=== PATIENT | female | born 1935 | race Caucasian/White ===

== ENCOUNTER → 2017-12-05 | Outpatient (CLI) | payer MEDICARE ==
[2017-12-05 12:19] LABS: AUTOMATED NEUTROPHIL # 4.7 TH/MM3 (1.8-7.7); BASOPHIL # 0.1 TH/MM3 (0-0.2); BASOPHIL % 0.9 % (0.0-2.0); EOSINOPHIL # 0.1 TH/MM3 (0-0.4); HEMATOCRIT 37.7 % (35.0-46.0); HEMOGLOBIN 12.5 GM/DL (11.6-15.3); LYMPH % 17.3 % (9.0-44.0); LYMPHOCYTE # 1.1 TH/MM3 (1.0-4.8); MEAN CELL VOLUME 93.1 FL (80.0-100.0); MEAN CORPUSCULAR HEMOGLOBIN 30.9 PG (27.0-34.0); MEAN CORPUSCULAR HGB CONC 33.2 % (32.0-36.0); MEAN PLATELET VOLUME 8.6 FL (7.0-11.0); MONO % 9.4 % (0.0-8.0); MONOCYTE # 0.6 TH/MM3 (0-0.9); NEUT % 71.4 % (16.0-70.0); PLATELET COUNT 234 TH/MM3 (150-450); RED BLOOD COUNT 4.05 MIL/MM3 (4.00-5.30); RED CELL DISTRIBUTION WIDTH 13.8 % (11.6-17.2); WHITE BLOOD COUNT 6.5 TH/MM3 (4.0-11.0)
[2017-12-05 12:32] LABS: PROTHROMBIN TIME - PATIENT 9.9 SEC (9.8-11.6)
[2017-12-05 12:43] LABS: ALBUMIN 3.7 GM/DL (3.4-5.0); ALT (GPT) 18 U/L (10-53); BLOOD UREA NITROGEN 17 MG/DL (7-18); CALCIUM 8.9 MG/DL (8.5-10.1); CHLORIDE 107 MEQ/L (98-107); CREATININE 0.79 MG/DL (0.50-1.00); GLOMERULAR FILTRATION RATE 69 ML/MIN (>89); GLUCOSE,FASTING 92 MG/DL (74-99); SODIUM (NA) 143 MEQ/L (136-145)
[2017-12-05 12:50] LABS: ALKALINE PHOSPHATASE 85 U/L (45-117); AST (GOT) 15 U/L (15-37); TOTAL BILIRUBIN ADULT 0.4 MG/DL (0.2-1.0); TOTAL PROTEIN 7.3 GM/DL (6.4-8.2)
--- NOTE | 2017-12-05 15:15 | RADRPT ---
EXAM DATE/TIME: 12/05/2017 12:27 [facility] COMPARISON: No previous studies available for comparison. INDICATIONS : Evaluate for pneumonia, pneumothorax or communicable disease. Pre op D&C. MEDICAL HISTORY : Uterine cancer SURGICAL HISTORY : None. ENCOUNTER: Initial ACUITY: 1 day PAIN SCORE: 0/10 LOCATION: Bilateral chest FINDINGS: PA and lateral views of the chest demonstrate a normal-sized cardiac silhouette. There is no effusion , consolidation, or pneumothorax. The bones and soft tissues demonstrate no acute abnormality. There are degenerative changes of the thoracic spine. Cholecystectomy clips are present. CONCLUSION: No acute cardiopulmonary abnormality is identified. Johnathan Apodaca MD on December 05, 2017 at 15:12 Board Certified Radiologist. This report was verified electronically.
--- NOTE | 2017-12-06 19:31 | EKG ---
Date Performed: 12/05/2017 Time Performed: 12:04:03 PTAGE: 82 years EKG: Sinus rhythm NONSPECIFIC T-WAVE ABNORMALITY BORDERLINE ECG NO PREVIOUS TRACING DOCTOR: Alvino Degroot Interpretating Date/Time 12/06/2017 19:29:15
== END ==
LOC: CPRE 11:19
PROVIDERS: ATTEND Obstetrics & Gynecology Gynecologic Oncology
DX: Z01.810 Encounter for preprocedural cardiovascular examination (principal); Z01.811 Encounter for preprocedural respiratory examination; Z01.812 Encounter for preprocedural laboratory examination; C54.1 Malignant neoplasm of endometrium; R94.31 Abnormal electrocardiogram [ECG] [EKG]
CPT/HCPCS: 36415; 71046; 80053; 85025; 85610; 85730; 93005

== ENCOUNTER → 2017-12-10 | Day surgery (SDC) | payer MEDICARE ==
[~2017-12-10] VITALS: Ht 167.6 cm; Wt 67.2 kg
[~2017-12-10] MED LIST: CHLORHEXIDINE GLUCONATE 2 % 1 PACK (2 CLOTHS) TOPICAL PRN; DEXAMETHASONE SOD PHOS 4 MG/ML VIAL IV ONE; DO NOT ADM ANY ANTICOAGULANT DRUGS PRN; FERRIC SUBSULFATE 8 ML TOP SOLN TOPICAL ONE; LACTATED RINGER'S 1000 ML IV PRN; LIDOCAINE HCL 1% PF 5 ML SYRINGE OTHER ONE; METOPROLOL TARTRATE 25 MG TAB PO PRN; ONDANSETRON HCL 4 MG/2 ML VIAL IV ONE; POVIDONE IODINE 5% (ANTISEPSIS KIT) 4 APPLICATIONS EACH NARE PRN; PROPOFOL 200 MG/20 ML AMP IV ONE; SODIUM CHLORID 0.9% 500 ML IV PRN
--- NOTE | 2017-12-10 13:22 | MP ---
cc: Angela Carvalho MD,Mariusz Kearns,radhika LYNCH DATE OF OPERATION: 12/10/2017 PREOPERATIVE DIAGNOSIS: 1. Postmenopausal bleeding. 2. 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 PROCEDURE: 1. Examination under anesthesia, biopsies of the cervix and upper vagina. 2. Cystoscopy. SURGEON: Angela Carvalho MD SCIENTIFIC GLASS BLOWER: [place] student assistant ANESTHESIA: Laryngeal mask. ESTIMATED BLOOD LOSS: 75 mL. HISTORY: An 82-year-old female with postmenopausal bleeding over many months duration. Outside biopsy showed adenocarcinoma. There was tissue taken from the cervix and a description of an abnormal cervix on clinical exam with extension to the upper vagina or tumor. Biopsy was read out as poorly differentiated carcinoma with apparent squamous and transitional cell differentiation. Another biopsy from the cervix showed adenocarcinoma, moderately differentiated. PET/CT scan shows a large PET avid signal in both the uterus and the cervix with the appearance of possibly extending to the upper vagina. She was counseled regarding these findings and need to get additional information to clarify the origin and extent of the problem, so that treatment recommendations can be made. FINDINGS: On exam under anesthesia, there is no appreciably enlarged inguinal lymph nodes. External genitalia without mass or lesion. On exam palpably, tumor can be felt extending along the anterior vagina in the vesicovaginal septum and subvaginal tissue that extends down into the lower third of the vagina. Similarly along the lateral ribera of the vagina, there is tumor infiltrating into the vaginal mucosa and subvaginal mucosa that occupies the upper half of the vagina. Similarly, there was extension to the upper half of the vagina posteriorly in the rectovaginal septum and subvaginal tissue. The tumor itself essentially replaces the cervix. There is a wide extension into the parametria bilaterally and the width of the tumor seems to extend to the pelvic sidewalls bilaterally. Whereas there is some minimal mobility between the cervix and the lateral pelvic sidewall, there is no obvious tumor free space and even if this were to be an endometrial tumor that had extended through the cervix, it has spread to the parametria into the vagina clinically acting more like the spread pattern of a cervical cancer. On cystoscopy, the bladder mucosa appears essentially normal. There are some inflammatory changes with some sediment deposit in the trigone. The ureteral ostia are well visualized bilaterally. There is good peristalsis of the ureters, although there was limited efflux of urine visualized during the period of examination. It is noted, however, clinically her creatinine is 0.7. Imaging did not show any hydronephrosis and clinically she is making urine and I suspect she was just somewhat dehydrated at time of exam. Proctosigmoidoscopy was attempted, but the prep was inadequate. There was no palpable tumor on deep rectovaginal exam. No obvious tumor arising in or extending into the anus and rectum, but she was essentially unprepped and visibility was not possible for proctosigmoidoscopy. Overall, these findings are consistent with a tumor a probable cervical origin, whereas the possibility of a uterine cancer, extending down through the cervix and vagina and parametria is possible. Either way, it is not amenable to surgical treatment due to the infiltrative and extensive nature of tumor. Additional biopsies were obtained and will be sent for permanent histopathologic analysis to help clarify the diagnosis. PROCEDURE NOTE: She was taken to the operating room and placed in dorsal lithotomy position after laryngeal mask anesthesia was administered. Time-out was undertaken. She was identified by site recognition and hospital ID bracelet and the proposed procedure was reviewed and confirmed. She was placed in lithotomy position. Pelvic exam was performed with findings as described above. She was prepped and draped in sterile fashion. In in-and-out catheterization of the bladder was performed. Biopsies were taken from the distal ventral vagina, from the right proximal vagina, and from the central cervical tumor and a pack was placed in the vagina to assist in hemostasis. Cystoscopy was performed using a 30-degree scope with findings as described above. The bladder was drained. Proctosigmoidoscopy started, attempted, but not done due to being non-prepped. A change of sterile gloves was undertaken. The pack was removed from the vagina. The biopsy sites were rendered hemostatic with topical Monsel's solution and then Surgicel SNoW was packed across the cervical tumor and in the upper vagina. A few moments later, she was reinspected. Sites were noted to be hemostatic. No active bleeding from this otherwise friable and hemorrhagic tumor. There were no remaining foreign objects in the vagina except for the intentionally left hemostatic agents. Preliminary and final counts were correct. She was returned to dorsal supine position and was pending reversal of anesthesia when I left the operating room to precede her to the postanesthesia care unit. MD BON Crane , 12:55 PM , 01:21 PM
[2017-12-10 14:10] VITALS: BP 157/74; PULSE 58; RESP 20; TEMP 97.7; O2SAT 95
== END | disposition home or self-care (01) ==
LOC: HSDC 09:03
PROVIDERS: ATTEND Obstetrics & Gynecology Gynecologic Oncology
DX: N95.0 Postmenopausal bleeding (principal); C53.8 Malignant neoplasm of overlapping sites of cervix uteri
CPT/HCPCS: 57100; 57500; 86850; 86900; 86901; 88305; 88341; 88342; J1100; J2405; J3010; J7120

== ENCOUNTER 2017-12-25 06:18 | Day surgery (SDC) | payer MEDICARE ==
[~2017-12-25] VITALS: Ht 167.6 cm; Wt 67.0 kg
[2017-12-25 06:52] VITALS: BP 150/93; PULSE 79; RESP 18; TEMP 98; O2SAT 96
[2017-12-25] MEDS ORDERED: POVIDONE IODINE 5% (ANTISEPSIS KIT) 4 APPLICATIONS EACH NARE SCH (07:00)
[2017-12-25] MEDS ORDERED: CHLORHEXIDINE GLUCONATE 2 % 1 PACK (2 CLOTHS) TOPICAL SCH (07:00)
[2017-12-25] MEDS ORDERED: SODIUM CHLORIDE 0.9% 1000 ML IV SCH ×2 (07:00→11:15)
[2017-12-25] MEDS ORDERED: MIDAZOLAM HCL 5 MG/5 ML VIAL ONE (07:44)
[2017-12-25] MEDS ORDERED: fentaNYL CITRATE 250 MCG/5 ML AMP ONE (07:45)
[2017-12-25] MEDS ORDERED: LIDOCAINE 1%/EPINEPHrine 1:100,000 SOLN 30 ML VIAL ONE (07:52)
--- NOTE | 2017-12-25 08:56 | PD.RAD ---
Post Procedure Progress Note Pre Procedure Diagnosis: (1) Endometrial cancer Post Procedure Diagnosis: (1) Endometrial cancer Procedure Date: December 25, 2017 Supervising Radiologist: Garrett Foote Estimated blood loss: 3cc Anesthesia: Local, Conscious Sedation Plan of Activity Patient to Unit: ROPU Patient Condition: Good Additional Comments: Port placed via the right IJ Port in good position OK for use See PACS Report for procedural detail/treatment Garrett Foote MD December 25, 2017 08:56
[2017-12-25 09:00] VITALS: BP 133/75; PULSE 77; RESP 16; TEMP 98; O2SAT 94
[2017-12-25] MEDS ORDERED: SODIUM CHLORIDE 0.9% FLUSH 10 ML FLUSH IVF PRN (09:00)
[2017-12-25 09:15] VITALS: BP 123/69; PULSE 69; RESP 20; O2SAT 94
[2017-12-25 09:45] VITALS: BP 123/73; PULSE 70; RESP 20; O2SAT 96
[2017-12-25 10:15] VITALS: BP 151/91; PULSE 68; RESP 20; O2SAT 95
[2017-12-25 10:45] VITALS: BP 134/65; PULSE 68; RESP 20; O2SAT 96
[2017-12-25] MEDS ORDERED: VANCOMYCIN 1000 MG/NS 250 ML - implanted port/tunneled catheter IV SCH ×2 (11:15)
[2017-12-25] MEDS ORDERED: ceFAZolin 2 GM PREMIX 50 ML - implanted port/tunneled catheter insertion IV SCH (11:15)
--- NOTE | 2017-12-26 09:37 | RADRPT ---
EXAM DATE/TIME: 12/25/2017 08:06 [facility] COMPARISON: No previous studies available for comparison. INDICATIONS : Patient presents with endometrial cancer in need of port placement for treatment. MEDICAL HISTORY : Endometrial cancer Cataracts SURGICAL HISTORY : Gallbladder surgery Tonsillectomy Cataract surgery ENCOUNTER: Initial ACUITY: 2 months PAIN SCORE: 0/10 LOCATION: N/A FLUORO TIME: 0.6 minutes IMAGE SERIES: 1 SEDATION TIME: 45 minutes ACCESS: Right internal jugular vein SEDATION: 1.) 3.5 mg midazolam (Versed) IV 2.) 100 mcg fentanyl (Sublimaze) IV Prophylactic antibiotics were administered with appropriate pre-procedure timing. Vancomycin within 2 hours of procedure, Ancef (or alternative) within 1 hour of procedure. DEVICE: 1. 8 Dominican single lumen Xcela Plus Port PROCEDURE : 1. Continuous pulse oximetry and EKG monitoring. 2. Intravenous conscious sedation. 3. Ultrasound guidance for venous access. 4. Fluoroscopic guided implantable central venous port placement. The patient was placed supine. The neck was prepped in sterile fashion. Full sterile technique was u sed, including cap, mask, sterile gloves and gown, and a large sterile sheet. Hand hygiene and 2% ch lorhexidine Betadine was utilized per protocol for cutaneous antisepsis with appropriate dry time for site. Sterile gel and sterile probe cover were utilized for ultrasound guidance. The skin and sub cutaneous tissues were infiltrated with local anesthetic solution. Under direct ultrasound guidance, central venous access was accomplished in the targeted vessel. The ultrasound images depicting access guidance were stored and saved to PACS for permanent record. A s ubcutaneous pocket was created using blunt dissection. The port was introduced to the pocket. The c atheter tubing was fed through a subcutaneous tunnel to the venotomy site. The catheter tubing was c ut to a suitable length and then was introduced through a valved Peel-Away sheath and positioned with catheter tubing tip at the cavo-atrial junction level. The pocket incision was closed with subcutic ular Vicryl suture. Steri-Strips were applied. The port was flushed and locked with heparin solutio n per protocol. Sterile dressing was applied to the site. The patient tolerated the procedure well. Conscious sedation was performed with the prescribed dosages and duration as above in the presence of an independent trained radiology nurse to assist in the monitoring of the patient. EKG and oximetry remained stable throughout the procedure. The patient tolerated the procedure well and there were no complications. The patient was sent to post anesthesia recovery in stable condition. CONCLUSION: Uncomplicated ultrasound and fluoroscopic guided implanted central venous port catheter placement as described in detail above. An 8 Dominican Power port was placed. Garrett Foote MD on December 26, 2017 at 9:35 Board Certified Radiologist. This report was verified electronically.
== END 2017-12-25 11:00 | disposition home or self-care (01) ==
LOC: HROP 06:18 → HRIP 06:18 → HROP 11:00
PROVIDERS: ATTEND Obstetrics & Gynecology Gynecologic Oncology
DX: Z45.2 Encounter for adjustment and management of vascular access device (principal); C54.1 Malignant neoplasm of endometrium
CPT/HCPCS: 36561; 76937; 77001; 99152; 99153; C1788; J0690; J1642; J2250; J3010; J3370; J7050

== ENCOUNTER 2018-03-06 12:27 | Observation (INO) ==
--- NOTE | 2018-03-06 13:39 | XR ---
EXAM DATE: 03/06/2018 1:33 PM EDT AGE/SEX: 82 years / Female INDICATIONS: Short of breath. CLINICAL DATA: This is the patient's initial encounter. Patient reports that signs and symptoms have been present for 1 day and indicates a pain score of 0/10. MEDICAL/SURGICAL HISTORY: Carcinoma, cervical. Carcinoma, uterine. None. COMPARISON: No prior exams available for comparison. FINDINGS: A single AP view of the chest demonstrates the lungs to be symmetrically aerated without evidence of mass, infiltrate or effusion. The cardiomediastinal contours are unremarkable. Osseous structures a re intact. Heigiw-v-Hrsb is in place via right internal jugular approach with its tip in the superior vena cava. The aortic knob is prominent with tortuosity of the descending thoracic aorta. CONCLUSION: No acute cardiopulmonary disease. Electronically signed by: Irving Garcia MD 03/06/2018 1:38 PM EDT
--- NOTE | 2018-03-06 14:08 | ED ---
HPI General Chief Complaint: Neuro Symptoms/Deficit Stated Complaint: Trouble speaking/dizzy Time Seen by Provider: 03/06/18 13:03 Source: patient and family Mode of arrival: ambulatory Limitations: no limitations History of Present Illness HPI Narrative: 82-year-old female that presents to the ED for evaluation of possible slurred speech. Per patient she is had slurred speech in the past. Per patient she had an episode of TIA about 2 months ago. She was released and has been following her doctor. She does have a significant history of uterine cancer gets radiation and chemo (no chemo in 2 months). Per patient she is been unsuccessful at getting chemo secondary to severe side effects from the chemotherapy. Apparently last time she had chemo she was put in the hospital for quite some time. Per patient she has been trying to get the radiation and other surgical treatments for her current cancer. Apparently they found out that her platelets have been low and on Saturday she was supposed to have seed implantation surgery but apparently it was canceled due to low platelets. They instead started her on hydration IV as well as platelets and was given a transfusion yesterday. Per patient she had slurred speech yesterday when she was given this platelets and hydration and her symptoms improved after this was given. Per patient she has not had any slurred speech since although she states that it comes and goes but today she was going for her second appointment to get her hydration and possible platelets at the oncology center and because she mentioned that she had some slurred speech there were brought here for evaluation. When asked if she mentioned this to them yesterday she does state that she did and she is questioning why they sent her here today but none yesterday. She herself does not want to be here. Per patient currently she has no neurological deficits. She is very concerned about getting her hydration today as well as possible platelet transfusion if she needs one because she does not want to miss her possible surgical treatment tomorrow. She currently has no pain. No blurry vision. No double vision. Her speech is normal at this time, per patient it seems to come and go. She takes no medications other than a baby aspirin. Related Data Home Medications Medication Instructions Recorded Confirmed aspirin [Aspirin Low Dose] 81 mg PO DAILY 03/03/18 03/06/18 magnesium oxide 400 mg PO DAILY 03/03/18 03/06/18 potassium chloride 10 meq PO DAILY 03/03/18 03/06/18 Allergies Allergy/AdvReac Type Severity Reaction Status Date / Time No Known Allergies Allergy Unverified 12/10/17 09:47 Review of Systems ROS Unobtainable All other systems reviewed negative except as stated in [facility] History History Provided By: Patient and Family Member Medical History Medical History Cancer (Acute) Port catheter in place (Acute) Surgical History Surgical History Hx of cholecystectomy (Acute) Social History Social History Substance History: No History of Abuse Second Hand Smoke Exposure: No Smoking Status: Never smoker How Often Do You Have a Drink Containing Alcohol: Monthly or less Recent Travel in [facility] within the Last 8 Weeks: No Recent Out of Country Travel within the Last 8 Weeks: No Exam Narrative Exam Narrative: GENERAL: Well-appearing SKIN: Focused skin assessment warm/dry. HEAD: Atraumatic. Normocephalic. EYES: Pupils equal and round. No scleral icterus. No injection or drainage. ENT: No nasal bleeding or discharge. Mucous membranes pink and moist. Tongue is midline. No uvula deviation. NECK: Trachea midline. No JVD. CARDIOVASCULAR: Regular rate and rhythm. No murmur appreciated. RESPIRATORY: No accessory muscle use. Clear to auscultation. Breath sounds equal bilaterally. GASTROINTESTINAL: Abdomen soft, non-tender, nondistended. Hepatic and splenic margins not palpable. MUSCULOSKELETAL: No obvious deformities. No clubbing. No cyanosis. No edema. Full range of motion of the upper and lower extremities bilaterally. 2+ pulses bilaterally. NEUROLOGICAL: Awake and alert. No obvious cranial nerve deficits. Motor grossly within normal limits. Normal speech. PSYCHIATRIC: Appropriate mood and affect; insight and judgment normal. Course Initial Documented Vital Signs Temperature 97.6 F 03/06/18 12:34 Pulse Rate 149 H 03/06/18 12:34 Respiratory Rate 15 03/06/18 12:34 Blood Pressure 129/84 03/06/18 12:34 Pulse Oximetry 99 03/06/18 12:34 Last Documented Vital Signs Temperature 97.6 F 03/06/18 12:34 Pulse Rate 81 03/06/18 14:00 Respiratory Rate 17 03/06/18 14:00 Blood Pressure 150/68 H 03/06/18 14:00 Pulse Oximetry 98 03/06/18 14:41 Medical Decision Making MAITE Attestation MAITE supervised visit: Yes Attestation: I, Dr. galaviz, have reviewed the advance practice practitioner's documentation and am in agreement, met with the patient face to face, made the diagnosis, and the medical decision making was done by me. *My assessment and Findings: 82-year-old female presents with episode of slurred speech and history of TIAs and uterine and cervical cancer. Workup shows UTI. Patient will be admitted for further care and given antibiotics. Aspirin held given history of thrombocytopenia MDM Narrative Medical decision making narrative: 82-year-old female that presents to the ED for evaluation of possible slurred speech. Patient was properly examined and was found to have signs and symptoms of unclear etiology at this time. Patient does have significant risk factors for TIA. Labs and imaging were ordered. I did review the patient's medical records from her blood drawn yesterday her platelets were 129. Low but not as significant as before. At this time patient was given IV fluids. My attending doctor who agrees with plan. Labs and imaging showed possible UTI, otherwise unremarcable. Asymptomatic the whole time here in the ED. My attending Dr Galaviz evaluated the patient and recommends zosyn and hydration and admit for TIA. This was discussed with the patient, she wants Dr Henriquez notified and see if they can still do surgery. I spoke with Kimi MAGDALENO for Dr Henriquez who states that if patient admitted she might have to cancel surgery but depends if patient can be cleared. She gave me Dr henriquez personal number and wants admitting doctor to call him once patient admitted. Case discussed with Dr Schumacher for [facility] who agrees to admission. Patient herself agreed to admission. Differential Diagnosis Differential Diagnosis: TIA versus CVA versus dehydration versus thrombocytopenia Medical Records Medical records reviewed: Yes I reviewed the patient's medical records. Lab Data Lab results reviewed: Yes I reviewed the patient's lab results. Lab results narrative: UA shows leukerase esteras and some bacteria with some WBCs troponin and CKMB negative Result diagrams: 03/06/18 13:15 03/06/18 13:15 Lab Results 03/06/18 03/06/18 03/06/18 Range/Units 13:15 13:15 13:15 WBC 9.0 (4.0-11.0) th/mm3 RBC 2.76 L (4.00-5.30) mil/mm3 Hgb 8.7 L (11.6-15.3) gm/dL Hct 26.0 L (35.0-46.0) % MCV 94.4 (80.0-100.0) fL MCH 31.7 (27.0-34.0) pg MCHC 33.6 (32.0-36.0) % RDW 17.8 H (11.6-17.2) % Plt Count 61 L (150-450) th/mm3 MPV 9.4 (7.0-11.0) fL Prelim Diff (Auto) Slide review pending Neut % (Auto) 85.3 H (16.0-70.0) % Lymph % (Auto) 4.7 L (9.0-44.0) % Ross % (Auto) 9.3 H (0.0-8.0) % Eos % (Auto) 0.4 (0.0-4.0) % Baso % (Auto) 0.3 (0.0-2.0) % Neut # (Auto) 7.7 (1.8-7.7) th/mm3 Lymph # (Auto) 0.4 L (1.0-4.8) th/mm3 Ross # (Auto) 0.8 (0.0-0.9) th/mm3 Eos # (Auto) 0.0 (0.0-0.4) th/mm3 Baso # (Auto) 0.0 (0.0-0.2) th/mm3 WBC Differential Manual diff final Seg Neuts % (Manual) 81 H (16-70) % Band Neuts % (Manual) 6 (0-6) % Lymphocytes % (Manual) 4 L (9-44) % Monocytes % (Manual) 9 H (0-8) % Abs Neuts (Manual) 7.8 H (1.8-7.7) th/mm3 Differential Comment . Platelet Estimate Low L (Normal) Platelet Morphology Normal (Normal) PT 10.1 (9.8-11.6) sec INR 1.0 Ratio APTT 21.6 L (24.3-30.1) sec Sodium 136 (136-145) meq/L Potassium 3.7 (3.5-5.1) meq/L Chloride 101 (98-107) meq/L Carbon Dioxide 26.4 (21.0-32.0) meq/L Anion Gap 9 (5-15) meq/L BUN 12 (7-18) mg/dL Creatinine 0.85 (0.50-1.00) mg/dL Estimated GFR 64 L (>89) mL/min Random Glucose 100 (74-106) mg/dL Lactic Acid (0.4-2.0) mmol/L Calcium 8.5 (8.5-10.1) mg/dL Total Bilirubin 0.4 (0.2-1.0) mg/dL AST 24 (15-37) U/L ALT 28 (10-53) U/L Alkaline Phosphatase 81 (45-117) U/L Total Creatine Kinase 72 (26-192) U/L Troponin I Less than 0.02 L (0.02-0.05) ng/mL Total Protein 7.0 (6.4-8.2) g/dL Albumin 3.0 L (3.4-5.0) g/dL Urine Color (Yellw/Straw) Urine Clarity (Clear) Urine pH (5.0-8.5) Ur Specific [place] (1.002-1.035) Urine Protein (Neg-Trace) mg/dL Urine Glucose (UA) (Negative) mg/dL Urine Ketones (Negative) mg/dL Urine Occult Blood (Negative) Urine Nitrate (Negative) Urine Bilirubin (Negative) Urine Urobilinogen (Less than 2) mg/dL Ur Leukocyte Esterase (Negative) Urine RBC (0-3) /hpf Urine WBC (0-5) /hpf Urine WBC Clumps (None) Ur Squamous Epith Cells (0-5) /hpf Urine Bacteria (None) /hpf Micro UA Comment Urine Culture Comments 03/06/18 03/06/18 Range/Units 14:00 15:35 WBC (4.0-11.0) th/mm3 RBC (4.00-5.30) mil/mm3 Hgb (11.6-15.3) gm/dL Hct (35.0-46.0) % MCV (80.0-100.0) fL MCH (27.0-34.0) pg MCHC (32.0-36.0) % RDW (11.6-17.2) % Plt Count (150-450) th/mm3 MPV (7.0-11.0) fL Prelim Diff (Auto) Neut % (Auto) (16.0-70.0) % Lymph % (Auto) (9.0-44.0) % Ross % (Auto) (0.0-8.0) % Eos % (Auto) (0.0-4.0) % Baso % (Auto) (0.0-2.0) % Neut # (Auto) (1.8-7.7) th/mm3 Lymph # (Auto) (1.0-4.8) th/mm3 Ross # (Auto) (0.0-0.9) th/mm3 Eos # (Auto) (0.0-0.4) th/mm3 Baso # (Auto) (0.0-0.2) th/mm3 WBC Differential Seg Neuts % (Manual) (16-70) % Band Neuts % (Manual) (0-6) % Lymphocytes % (Manual) (9-44) % Monocytes % (Manual) (0-8) % Abs Neuts (Manual) (1.8-7.7) th/mm3 Differential Comment Platelet Estimate (Normal) Platelet Morphology (Normal) PT (9.8-11.6) sec INR Ratio APTT (24.3-30.1) sec Sodium (136-145) meq/L Potassium (3.5-5.1) meq/L Chloride (98-107) meq/L Carbon Dioxide (21.0-32.0) meq/L Anion Gap (5-15) meq/L BUN (7-18) mg/dL Creatinine (0.50-1.00) mg/dL Estimated GFR (>89) mL/min Random Glucose (74-106) mg/dL Lactic Acid 0.6 (0.4-2.0) mmol/L Calcium (8.5-10.1) mg/dL Total Bilirubin (0.2-1.0) mg/dL AST (15-37) U/L ALT (10-53) U/L Alkaline Phosphatase (45-117) U/L Total Creatine Kinase (26-192) U/L Troponin I (0.02-0.05) ng/mL Total Protein (6.4-8.2) g/dL Albumin (3.4-5.0) g/dL Urine Color Straw (Yellw/Straw) Urine Clarity Hazy H (Clear) Urine pH 8.0 (5.0-8.5) Ur Specific [place] 1.003 (1.002-1.035) Urine Protein Negative (Neg-Trace) mg/dL Urine Glucose (UA) Negative (Negative) mg/dL Urine Ketones Negative (Negative) mg/dL Urine Occult Blood Moderate H (Negative) Urine Nitrate Negative (Negative) Urine Bilirubin Negative (Negative) Urine Urobilinogen Less than 2 (Less than 2) mg/dL Ur Leukocyte Esterase Large H (Negative) Urine RBC 3 (0-3) /hpf Urine WBC 99 H (0-5) /hpf Urine WBC Clumps Rare H (None) Ur Squamous Epith Cells <1 (0-5) /hpf Urine Bacteria Few H (None) /hpf Micro UA Comment Culture indicated Urine Culture Comments Culture indicated Imaging Data Attestation: I personally reviewed and interpreted this imaging study as follows : Radiologist's impression: ITS Impressions Chest X-Ray 03/06/18 13:04 CONCLUSION: No acute cardiopulmonary disease. Head CT 03/06/18 13:04 CONCLUSION: 1. No acute abnormality. 2. Mild atrophy. ECG Data EKG Prior to Arrival: No Attestation: I personally reviewed and interpreted this ECG as follows: (EKG shows sinus rhythm with no sign of acute ischemia or arrhytmia read by me and attending.) Discharge Plan Discharge Disposition Patient Disposition: 30 Still Patient Discharge Details Diagnosis: Slurred speech, Acute UTI Physicians Team ED Provider: Blanka Galaviz ED Midlevel Provider: Wellington Duenas Primary Care Provider: Primary Care Molly Abdi Attending Provider: Navarro Anand Discharge Interventions Interventions: Vital Signs Last Done: 03/06/18 14:00 Status ED Status: Admitted Observation Patient
[2018-03-06 15:41] LABS: Baso % (Auto) 0.3 % (0.0-2.0); Eos % (Auto) 0.4 % (0.0-4.0); Hemoglobin 8.7 gm/dL (11.6-15.3); Lymph # (Auto) 0.4 th/mm3 (1.0-4.8); Lymph % (Auto) 4.7 % (9.0-44.0); Mean Corpuscular HGB Conc 33.6 % (32.0-36.0); Mean Corpuscular Hemoglobin 31.7 pg (27.0-34.0); Mean Corpuscular Volume 94.4 fL (80.0-100.0); Mean Platelet Volume 9.4 fL (7.0-11.0); Mono # (Auto) 0.8 th/mm3 (0.0-0.9); Mono % (Auto) 9.3 % (0.0-8.0); Neut # (Auto) 7.7 th/mm3 (1.8-7.7); Neut % (Auto) 85.3 % (16.0-70.0); Platelet Count 61 th/mm3 (150-450); Red Blood Count 2.76 mil/mm3 (4.00-5.30); Red Cell Distribution Width 17.8 % (11.6-17.2)
[2018-03-06 15:45] LABS: Activated Partial Thrombo Time 21.6 sec (24.3-30.1); Prothrombin Time 10.1 sec (9.8-11.6)
[2018-03-06 15:49] LABS: Bacteria,Urine Few /hpf; Bilirubin,Urine Negative (Negative); Clarity,Urine Hazy (Clear); Color,Urine Straw (Yellw/Straw); Glucose,Urine (UA) Negative (Negative); Leukocyte Esterase,Urine Large (Negative); Nitrite,Urine Negative (Negative); Specific Gravity,Urine 1.003 (1.002-1.035); Squamous Epithelial Cell,Urine <1 /hpf (0-5)
[2018-03-06 15:53] LABS: Alanine Aminotransferase 28 U/L (10-53); Anion Gap 9 meq/L (5-15); Aspartate Aminotransferase 24 U/L (15-37); Blood Urea Nitrogen 12 mg/dL (7-18); Calcium 8.5 mg/dL (8.5-10.1); Carbon Dioxide 26.4 meq/L (21.0-32.0); Chloride 101 meq/L (98-107); Glomerular Filtration Rate 64 mL/min (>89); Glucose,Random 100 mg/dL (74-106); Potassium 3.7 meq/L (3.5-5.1); Sodium 136 meq/L (136-145)
[2018-03-06 15:56] LABS: Alkaline Phosphatase 81 U/L (45-117)
[2018-03-06 16:05] LABS: Creatine Kinase 72 U/L (26-192)
[2018-03-06] MEDS ORDERED: Piperacil/Tazo 3.375 GM Premix 50 ML IV.SIG ONE (16:06)
[2018-03-06 16:49] LABS: Lymphocytes 4 % (9-44); Monocytes 9 % (0-8)
[2018-03-06 16:51] LABS: Platelet Morphology Normal (Normal)
--- NOTE | 2018-03-06 17:40 | CT ---
EXAM DATE: 03/06/2018 1:39 PM EDT AGE/SEX: 82 years / Female INDICATIONS: Altered mental status. Slurred speech and dizziness on and off since yesterday. CLINICAL DATA: This is the patient's initial encounter. Patient reports that signs and symptoms have been present for 1 day and indicates a pain score of 0/10. MEDICAL/SURGICAL HISTORY: Carcinoma, cervical. Carcinoma, uterine. None. RADIATION DOSE: 35.82 CTDI (mGy) COMPARISON: No prior exams available for comparison. TECHNIQUE: CT of the head without contrast. Using automated exposure control and adjustment of the mA and/or kV according to patient size, radiation dose was kept as low as reasonably achievable to ob tain optimal diagnostic quality images. DICOM format image data is available electronically for revi ew and comparison. FINDINGS: Cerebrum: The ventricles are normal for age. There is mild sulcal widening. No evidence of midline s hift, mass lesion, hemorrhage or acute infarction. No extraaxial fluid collections are seen. Posterior Fossa: The cerebellum and brainstem are intact. The 4th ventricle is midline. The cerebe llopontine angle is unremarkable. Extracranial: The visualized portion of the orbits is intact. Skull: The calvaria is intact. No evidence of skull fracture. CONCLUSION: 1. No acute abnormality. 2. Mild atrophy. Electronically signed by: Johnathan Chou MD 03/06/2018 5:39 PM EDT
--- NOTE | 2018-03-06 21:17 | P.HP ---
History of Present Illness Service: [facility] adult med Primary Care Physician: No Primary Care Physician Chief Complaint: slurred speech, difficulty expressing thoughts, dizziness History of Present Illness: The very pleasant 82-year-old female who has been undergoing radiation treatment for cervical and apparently uterine cancer who is over the last 2 months had several episodes of speech disturbance. Her first episode occurred in late December when she was driving her car and she noticed that she could not speak correctly and became somewhat dizzy. She also had some forgetfulness at that time and was hospitalized. She reports by the time she was hospitalized her speech had returned. This hospitalization occurred in [place] she had MRI MRA CT done which were all essentially unremarkable at that time. She also had an echocardiogram done during that hospitalization on January 22 which demonstrated mild to moderate regurgitation with an EF of 50-55%. There is no mention of any valve vegetations. Her PA peak pressure was 35 mmHg. She reports that she had a subsequent similar event after she was shopping and a local [employer] in early January. She was again hospitalized around January 27 and underwent a neurologic evaluation via telemedicine. Reports from that consultation revealed that she had 2 previous MRIs one was negative in 1 "positive for stroke" and a third MRI was planned. Final MRI report that I can view in her electronic health record was done January 29 and was negative for any acute findings. The events leading to today's ER visit and hospitalization started this morning when she presented to the oncology suite for preplanned hydration and pre-eval for a planned cervical seed implant under anesthesia tomorrow morning with Dr. Carvalho. desktop administrator and oncology noticed the patient was slurring her words and patient reported that she could not form the words she wanted to say. They encouraged her to come to the ER but she refused and went upstairs however she was still having some slurred speech and dizziness and was placed in a wheelchair and brought to the ER apparently by her daughter. Her speech was already clearing when she came to the ER and she is baseline. Her desire to go ahead with the planned anesthesia cervical seed implant tomorrow morning. It is noted that her radiation oncologist wanted her to have a [id number] neurology evaluation as an outpatient but she has not been able to schedule that until the of this month. She denies any chest pain or shortness of breath. Denies any vomiting. She has had some nausea and weakness particularly since starting the radiation therapy. She has been told to take an aspirin and tries to do that daily but her low platelets have made it somewhat problematic. She is actually received platelet transfusions recently in attempts to prepare her for her planned female exam under anesthesia tomorrow morning. I discussed the case with Dr. Carvalho and neither is us or comfortable with her proceeding with the procedure until actually evaluated by neurologist. Patient needs a disk sander and a prolonged event monitor which is been advised by cardiology that she declined to set up that appointment as an outpatient. My concern is that she is having intermittent TIAs which places her at significant risk for possible large stroke. I am unsure of the possible embolic source however. 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 - Diagnosis (1) TIA (transient ischemic attack) (2) Slurred speech (3) Acute UTI (4) Cervical cancer Inpatient Certification: I certify that the inpatient services were ordered in accordance with Medicare regulations governing the order. This includes certification that hospital inpatient services are reasonable and necessary and in the case of services not specified as inpatient-only under 42 CFR 419.22(n), that they are appropriately provided as inpatient services in accordance to with the 2-midnight benchmark under 43 CFR 412.3(e) Plans for Post Hospital Care: Home Review of Systems Constitutional: Reports daytime sleepiness, Reports fatigue, Reports weakness Cardiovascular: Denies chest pain, Denies chest pain at rest, Denies chest pain with activity, Denies excessive sweating, Denies fainting, Denies fast heart rate, Denies foot swelling, Denies generalized swelling, Denies irregular heart rhythm, Denies leg pain with activity, Denies leg sores, Denies leg swelling, Denies lightheadedness, Denies radiating jaw, neck or arm pain, Denies rapid, pounding, or irregular heartbeat, Denies shortness of breath, Denies shortness of breath with activity, Denies shortness of breath when lying down, Denies shortness of breath causing sudden awakening, Denies slow heart rate, Denies other Respiratory: Denies change in phlegm color, Denies chest congestion, Denies cough, Denies coughing up blood, Denies excessive phlegm production, Denies pain on inspiration, Denies pain with cough, Denies shortness of breath, Denies shortness of breath with activity, Denies snoring, Denies stridor, Denies wheezing, Denies other Gastrointestinal: Reports loose stools, Reports nausea, Denies abdominal pain, Denies belching, Denies black, tarry stools, Denies bloating, Denies bright, red blood in stools, Denies change in bowel habits, Denies constant urge to pass stool, Denies change in stools, Denies coffee ground vomit, Denies constipation, Denies cramping, Denies difficulty swallowing, Denies excessive passing of gas, Denies feeling full early, Denies heartburn, Denies incontinent of stools, Denies pain with swallowing, Denies vomiting, Denies vomiting blood, Denies other Musculoskeletal: Reports back pain Neurologic: Reports abnormal speech, Reports confusion, Reports dizziness Psychiatric: Reports anxiety PMFSH - History History Provided By: Patient, Family Member - Medical History Medical History: Medical History (Last Reviewed 03/06/18 @ 17:42 by Blanka Galaviz MD) Cancer Port catheter in place - Surgical History Surgical History: Surgical History (Last Updated 03/06/18 @ 21:12 by Edilson Schumacher MD, PhD) History of tonsillectomy and adenoidectomy Hx of cholecystectomy - Tobacco History Second Hand Smoke Exposure: No Smoking Status: Never smoker - Alcohol History How Often Do You Have a Drink Containing Alcohol: Monthly or less - Substance Use History Substance History: No History of Abuse - Travel History Recent Travel in the [facility] Within the Last 8 Weeks: No Recent Travel Out of the Country Within the Last 8 Weeks: No Medications and Allergies Active Medications: Active Medications Potassium Chloride/Sodium Chloride (Ns + Kcl 20 Meq Inj) 1,000 mls @ 84 mls/hr IV.CONT .[id number] [facility] Last Admin: 03/06/18 18:09 Dose: 84 mls/hr Sodium Chloride (Ns Flush) 2 ml IV.FLUSH PRN PRN PRN Reason: FLUSH AFTER USING IV ACCESS Allergies Allergy/AdvReac Type Severity Reaction Status Date / Time No Known Allergies Allergy Unverified 12/10/17 09:47 Home Medications Medication Instructions Recorded Confirmed Type aspirin [Aspirin Low Dose] 81 mg PO DAILY 03/03/18 03/06/18 History magnesium oxide 400 mg PO DAILY 03/03/18 03/06/18 History potassium chloride 10 meq PO DAILY 03/03/18 03/06/18 History Exam Vital signs: Vital Signs 03/06/18 12:34 03/06/18 14:00 03/06/18 14:41 Temperature 97.6 F Pulse Rate 149 H 81 Respiratory Rate 15 17 Blood Pressure 129/84 150/68 H Pulse Oximetry 99 98 98 Intake & Output 03/06/18 03/06/18 03/07/18 06:59 18:59 06:59 Intake Total 50 / 50 Balance 50 / 50 Weight 59.421 kg Intake: IV 50 / 50 Zosyn 3.375 GM Premix 50 ML @ 50 / 50 100 mls/hr IV.SIG ONCE ONE Rx#: [id number] Narrative: GENERAL: No acute distress, alert and oriented, pleasant, speech normal. SKIN: Warm and dry. Few purpuric lesions on forearms bilaterally. HEAD: Atraumatic. Normocephalic. EYES: Pupils equal and round. No scleral icterus. No injection or drainage. ENT: No nasal bleeding or discharge. Mucous membranes pink and moist. NECK: Trachea midline. No JVD. CARDIOVASCULAR: Regular rate and rhythm. No murmur. RESPIRATORY: No accessory muscle use. Clear to auscultation. Breath sounds equal bilaterally. GASTROINTESTINAL: Abdomen soft, non-tender, nondistended. Hepatic and splenic margins not palpable. MUSCULOSKELETAL: Extremities without clubbing, cyanosis, or edema. No obvious deformities. NEUROLOGICAL: Awake and alert. No obvious cranial nerve deficits. Motor grossly within normal limits. Five out of 5 muscle strength in the arms and legs. Normal speech. PSYCHIATRIC: Appropriate mood and affect; insight and judgment normal. Results - Labs CBC & Chem 7: 03/06/18 13:15 03/06/18 13:15 Labs: Laboratory Results - last 24 hr 03/06/18 03/06/18 03/06/18 13:15 13:15 13:15 WBC 9.0 RBC 2.76 L Hgb 8.7 L Hct 26.0 L MCV 94.4 MCH 31.7 MCHC 33.6 RDW 17.8 H Plt Count 61 L MPV 9.4 Prelim Diff (Auto) Slide review pending Neut % (Auto) 85.3 H Lymph % (Auto) 4.7 L [place] % (Auto) 9.3 H Eos % (Auto) 0.4 Baso % (Auto) 0.3 Neut # (Auto) 7.7 Lymph # (Auto) 0.4 L [place] # (Auto) 0.8 Eos # (Auto) 0.0 Baso # (Auto) 0.0 WBC Differential Manual diff final Seg Neuts % (Manual) 81 H Band Neuts % (Manual) 6 Lymphocytes % (Manual) 4 L Monocytes % (Manual) 9 H Abs Neuts (Manual) 7.8 H Differential Comment . Platelet Estimate Low L Platelet Morphology Normal PT 10.1 INR 1.0 APTT 21.6 L Sodium 136 Potassium 3.7 Chloride 101 Carbon Dioxide 26.4 Anion Gap 9 BUN 12 Creatinine 0.85 Estimated GFR 64 L Random Glucose 100 Lactic Acid Calcium 8.5 Total Bilirubin 0.4 AST 24 ALT 28 Alkaline Phosphatase 81 Total Creatine Kinase 72 Troponin I Less than 0.02 L Total Protein 7.0 Albumin 3.0 L Urine Color Urine Clarity Urine pH Ur Specific [place] Urine Protein Urine Glucose (UA) Urine Ketones Urine Occult Blood Urine Nitrate Urine Bilirubin Urine Urobilinogen Ur Leukocyte Esterase Urine RBC Urine WBC Urine WBC Clumps Ur Squamous Epith Cells Urine Bacteria Micro UA Comment Urine Culture Comments 03/06/18 03/06/18 14:00 15:35 WBC RBC Hgb Hct MCV MCH MCHC RDW Plt Count MPV Prelim Diff (Auto) Neut % (Auto) Lymph % (Auto) [place] % (Auto) Eos % (Auto) Baso % (Auto) Neut # (Auto) Lymph # (Auto) [place] # (Auto) Eos # (Auto) Baso # (Auto) WBC Differential Seg Neuts % (Manual) Band Neuts % (Manual) Lymphocytes % (Manual) Monocytes % (Manual) Abs Neuts (Manual) Differential Comment Platelet Estimate Platelet Morphology PT INR APTT Sodium Potassium Chloride Carbon Dioxide Anion Gap BUN Creatinine Estimated GFR Random Glucose Lactic Acid 0.6 Calcium Total Bilirubin AST ALT Alkaline Phosphatase Total Creatine Kinase Troponin I Total Protein Albumin Urine Color Straw Urine Clarity Hazy H Urine pH 8.0 Ur Specific [place] 1.003 Urine Protein Negative Urine Glucose (UA) Negative Urine Ketones Negative Urine Occult Blood Moderate H Urine Nitrate Negative Urine Bilirubin Negative Urine Urobilinogen Less than 2 Ur Leukocyte Esterase Large H Urine RBC 3 Urine WBC 99 H Urine WBC Clumps Rare H Ur Squamous Epith Cells <1 Urine Bacteria Few H Micro UA Comment Culture indicated Urine Culture Comments Culture indicated - Imaging Impressions Chest X-Ray 03/06/18 13:04 CONCLUSION: No acute cardiopulmonary disease. Head CT 03/06/18 13:04 CONCLUSION: 1. No acute abnormality. 2. Mild atrophy. Caprini VTE Risk Assessment Caprini VTE Risk Assessment: Moderate/High Risk (score >= 2) Caprini Risk Assessment Model: Point Value = 1 Point Value = 2 Point Value = 3 Point Value = 5 Age 41-60 Minor surgery BMI > 25 kg/m2 Swollen legs Varicose veins or History of unexplained or recurrent spontaneous Oral contraceptives or hormone replacement Sepsis (< 1 month) Serious lung disease, including pneumonia (< 1 month) Abnormal pulmonary function Acute myocardial infarction Congestive heart failure (< 1 month) History of inflammatory bowel disease Medical patient at bed rest Age 61-74 Arthroscopic surgery Major open surgery (> 45 min) Laparoscopic surgery (> 45 min) Malignancy Confined to bed (> 72 hours) Immobilizing plaster cast Central venous access Age >= 75 History of VTE Family history of VTE Factor V Leiden Prothrombin [id number] Lupus anticoagulant Anticardiolipin antibodies Elevated serum homocysteine Heparin-induced thrombocytopenia Other congenital or acquired thrombophilia Stroke (< 1 month) Elective arthroplasty Hip, pelvis, or leg fracture Acute spinal cord injury (< 1 month) Prophylaxis Regimen: Total Risk Factor Score Risk Level Prophylaxis Regimen 0-1 Low Early ambulation 2 Moderate Order ONE of the following: *Sequential Compression Device (SCD) *Heparin 5000 units SQ BID 3-4 Higher Order ONE of the following medications: *Heparin 5000 units SQ TID *Enoxaparin/Lovenox 40 mg SQ daily (WT < 150 kg, CrCl > 30 mL/min) *Enoxaparin/Lovenox 30 mg SQ daily (WT < 150 kg, CrCl > 10-29 mL/min) *Enoxaparin/Lovenox 30 mg SQ BID (WT < 150 kg, CrCl > 30 mL/min) AND/OR *Sequential Compression Device (SCD) 5 or more Highest Order ONE of the following medications: *Heparin 5000 units SQ TID (Preferred with Epidurals) *Enoxaparin/Lovenox 40 mg SQ daily (WT < 150 kg, CrCl > 30 mL/min) *Enoxaparin/Lovenox 30 mg SQ daily (WT < 150 kg, CrCl > 10-29 mL/min) *Enoxaparin/Lovenox 30 mg SQ BID (WT < 150 kg, CrCl > 30 mL/min) AND *Sequential Compression Device (SCD) Assessment and Plan - Assessment (1) TIA (transient ischemic attack) Code(s): G45.9 - Transient cerebral ischemic attack, unspecified Status: Acute Plan: Possible recurrent TIA events. We will have neurology see patient since she has not had a formal [id number] neurology evaluation. She has had multiple MRIs and CTAs ultrasounds and an echo done recently. I will check a repeat MRI to look for any subtle changes but will not be more aggressive at this point. She needs to be on telemetry and may benefit from an outpatient event monitor. (2) Slurred speech Code(s): R47.81 - Slurred speech Status: Acute Plan: As above. (3) Acute UTI Code(s): N39.0 - Urinary tract infection, site not specified Status: Acute Plan: Continue antibiotics. Certainly could have been contributing to her symptoms today but her speech and dizziness all resolved before she received any treatment here in the ER per her report. (4) Cervical cancer Code(s): C53.9 - Malignant neoplasm of cervix uteri, unspecified Status: Acute Plan: Has been undergoing radiation therapy. Was scheduled for seed implants tomorrow but will hold off on surgery at this point. I discussed the case with her oncologist, Dr. Carvalho. - Plan Code Status: full, but does not want prolonged heroic measures. Has a living will. Discussed Condition With: Patient, ER provider and Dr. Carvalho.
[2018-03-06] MEDS ORDERED: Gadobutrol PF 7.5 MMOL/7.5 ML Vial (for RAD) IV.SIG ONE (22:35)
--- NOTE | 2018-03-06 23:06 | MR ---
EXAM DATE: 03/06/2018 10:59 PM EDT AGE/SEX: 82 years / Female INDICATIONS: TIA. Dizziness with slurred speech. CLINICAL DATA: This is the patient's initial encounter. Patient reports that signs and symptoms have been present for 1 day and indicates a pain score of 1/10. MEDICAL/SURGICAL HISTORY: Carcinoma, cervical. Uterine cancer. Tonsillectomy. Cholecystectomy . COMPARISON: [facility], CT HEAD W/O CONTRAST, 03/06/2018. . TECHNIQUE: Multiplanar, multisequence examination of the brain was performed without and with 6 ml Ga davist (gadobutrol) contrast as a single exam dose. FINDINGS: Cerebrum: There is mild generalized atrophy with ventricular size within normal limits given the degr ee of atrophy. No midline shift, mass lesion, hemorrhage or acute infarction. No extraaxial fluid c ollections are seen. The pituitary gland and suprasellar cistern are normal in configuration. White Matter: There is mild periventricular and subcortical white matter signal change. Posterior Fossa: The cerebellum and brainstem demonstrate no acute abnormality. The 4th ventricle is midline. The cerebellopontine angle is within normal limits. The cerebellar tonsils are normal in p osition. Diffusion Imaging: No areas of restricted diffusion are seen. Extracranial: The visualized sinuses are clear. Post contrast: No abnormal areas of enhancement are identified. CONCLUSION: 1. No acute intracranial abnormality is identified. There are no findings to indicate recent ischemi a. 2. Chronic changes include generalized atrophy and chronic periventricular and subcortical white mat ter signal change. Electronically signed by: Johnathan Apodaca MD 03/06/2018 11:04 PM EDT
[2018-03-07 07:38] LABS: Baso % (Auto) 0.3 % (0.0-2.0); Eos # (Auto) 0.1 th/mm3 (0.0-0.4); Hemoglobin 8.4 gm/dL (11.6-15.3); Lymph # (Auto) 0.3 th/mm3 (1.0-4.8); Mean Corpuscular HGB Conc 33.7 % (32.0-36.0); Mean Corpuscular Hemoglobin 32.1 pg (27.0-34.0); Mean Corpuscular Volume 95.3 fL (80.0-100.0); Mean Platelet Volume 9.1 fL (7.0-11.0); Mono # (Auto) 0.7 th/mm3 (0.0-0.9); Mono % (Auto) 10.1 % (0.0-8.0); Neut # (Auto) 5.7 th/mm3 (1.8-7.7); Neut % (Auto) 83.6 % (16.0-70.0); Platelet Count 55 th/mm3 (150-450); Red Blood Count 2.62 mil/mm3 (4.00-5.30); Red Cell Distribution Width 17.8 % (11.6-17.2); White Blood Count 6.8 th/mm3 (4.0-11.0)
[2018-03-07] MEDS ORDERED: Loperamide 2 MG Capsule PO PRN (09:35)
[2018-03-07 10:07] LABS: Lymphocytes 4 % (9-44); Monocytes 11 % (0-8); Myelocytes 1 % (0-0); Platelet Morphology Normal (Normal)
--- NOTE | 2018-03-07 10:07 | P.PNIM ---
Subjective Interval history: No further speech difficulties Pt denies any headache, dizziness, weakness Physical Exam Vital signs: Vital Signs 03/06/18 12:34 03/06/18 14:00 03/06/18 14:41 Temperature 97.6 F Pulse Rate 149 H 81 Respiratory Rate 15 17 Blood Pressure 129/84 150/68 H Pulse Oximetry 99 98 98 03/06/18 21:05 03/06/18 21:13 03/07/18 00:00 Temperature 98 F 97.1 F L Pulse Rate 83 82 Respiratory Rate 16 20 Blood Pressure 139/82 136/68 Pulse Oximetry 96 98 98 03/07/18 04:00 03/07/18 08:00 Temperature 98.2 F 98.7 F Pulse Rate 80 79 Respiratory Rate 16 17 Blood Pressure 122/63 134/67 Pulse Oximetry 96 95 Intake & Output 03/06/18 03/07/18 03/07/18 18:59 06:59 18:59 Intake Total 150 / 150 Balance 150 / 150 Weight 59.421 kg Intake: IV 150 / 150 Zosyn 3.375 GM Premix 50 ML @ 50 / 50 100 mls/hr IV.SIG ONCE ONE Rx#: [id number] Rocephin Inj 1,000 MG In NS Inj 100 / 100 100 ML @ 200 mls/hr IV.SIG Q24H STEPHAN Rx#:[id number] Other: Date of Last Bowel Movement 03/07/18 Results - Labs CBC & Chem 7: 03/07/18 06:15 03/06/18 13:15 Laboratory Results - last 24 hr 03/06/18 03/06/18 03/06/18 13:15 13:15 13:15 WBC 9.0 RBC 2.76 L Hgb 8.7 L Hct 26.0 L MCV 94.4 MCH 31.7 MCHC 33.6 RDW 17.8 H Plt Count 61 L MPV 9.4 Prelim Diff (Auto) Slide review pending Neut % (Auto) 85.3 H Lymph % (Auto) 4.7 L Collier % (Auto) 9.3 H Eos % (Auto) 0.4 Baso % (Auto) 0.3 Neut # (Auto) 7.7 Lymph # (Auto) 0.4 L Collier # (Auto) 0.8 Eos # (Auto) 0.0 Baso # (Auto) 0.0 WBC Differential Manual diff final Seg Neuts % (Manual) 81 H Band Neuts % (Manual) 6 Lymphocytes % (Manual) 4 L Monocytes % (Manual) 9 H Abs Neuts (Manual) 7.8 H Differential Comment . Platelet Estimate Low L Platelet Morphology Normal PT 10.1 INR 1.0 APTT 21.6 L Sodium 136 Potassium 3.7 Chloride 101 Carbon Dioxide 26.4 Anion Gap 9 BUN 12 Creatinine 0.85 Estimated GFR 64 L Random Glucose 100 Lactic Acid Calcium 8.5 Total Bilirubin 0.4 AST 24 ALT 28 Alkaline Phosphatase 81 Total Creatine Kinase 72 Troponin I Less than 0.02 L Total Protein 7.0 Albumin 3.0 L Urine Color Urine Clarity Urine pH Ur Specific Hatley Urine Protein Urine Glucose (UA) Urine Ketones Urine Occult Blood Urine Nitrate Urine Bilirubin Urine Urobilinogen Ur Leukocyte Esterase Urine RBC Urine WBC Urine WBC Clumps Ur Squamous Epith Cells Urine Bacteria Micro UA Comment Urine Culture Comments 03/06/18 03/06/18 03/07/18 14:00 15:35 06:15 WBC 6.8 RBC 2.62 L Hgb 8.4 L Hct 25.0 L MCV 95.3 MCH 32.1 MCHC 33.7 RDW 17.8 H Plt Count 55 L MPV 9.1 Prelim Diff (Auto) Slide review pending Neut % (Auto) 83.6 H Lymph % (Auto) 5.0 L Collier % (Auto) 10.1 H Eos % (Auto) 1.0 Baso % (Auto) 0.3 Neut # (Auto) 5.7 Lymph # (Auto) 0.3 L Collier # (Auto) 0.7 Eos # (Auto) 0.1 Baso # (Auto) 0.0 WBC Differential Seg Neuts % (Manual) Band Neuts % (Manual) Lymphocytes % (Manual) Monocytes % (Manual) Abs Neuts (Manual) Differential Comment . Platelet Estimate Platelet Morphology PT INR APTT Sodium Potassium Chloride Carbon Dioxide Anion Gap BUN Creatinine Estimated GFR Random Glucose Lactic Acid 0.6 Calcium Total Bilirubin AST ALT Alkaline Phosphatase Total Creatine Kinase Troponin I Total Protein Albumin Urine Color Straw Urine Clarity Hazy H Urine pH 8.0 Ur Specific Hatley 1.003 Urine Protein Negative Urine Glucose (UA) Negative Urine Ketones Negative Urine Occult Blood Moderate H Urine Nitrate Negative Urine Bilirubin Negative Urine Urobilinogen Less than 2 Ur Leukocyte Esterase Large H Urine RBC 3 Urine WBC 99 H Urine WBC Clumps Rare H Ur Squamous Epith Cells <1 Urine Bacteria Few H Micro UA Comment Culture indicated Urine Culture Comments Culture indicated - Imaging Impressions Head MRI 03/06/18 00:00 CONCLUSION: 1. No acute intracranial abnormality is identified. There are no findings to indicate recent ischemia. 2. Chronic changes include generalized atrophy and chronic periventricular and subcortical white matter signal change. Chest X-Ray 03/06/18 13:04 CONCLUSION: No acute cardiopulmonary disease. Head CT 03/06/18 13:04 CONCLUSION: 1. No acute abnormality. 2. Mild atrophy. Assessment and Plan - Assessment (1) TIA (transient ischemic attack) Code(s): G45.9 - Transient cerebral ischemic attack, unspecified Status: Acute Plan: Slurred speech Dizziness Possible TIA - Pt is an 82 y/o female with cervical and apparently uterine cancer who has been undergoing XRT and chemo with Dr. Collazo and Dr. Carvalho. Pt reported to the ED for slurred speech and dizziness which has reportedly occurred intermittently over the last 2 months. Her first episode occurred in late December when she was driving her car and she noticed that she could not speak correctly and became somewhat dizzy. - She has previously been hospitalized at [facility] in 01/21/18-01/23/18. The discharge summary from that admission reported that the pt had a CT brain, Carotid US (no hemodynamically significant stenosis), echocardiogram (estimated EF 50-55%, mild-mod aortic regurg, mild tricuspid regurg, PA pressure 35mmHg), and MRI Brain (small left temporal lobe infarct that appears to be acute to subacute). Pt was recommended to have an outpt prolonged heart monitor but this was unable to be scheduled by the pt after that admission. Pt was discharged on ASA 81mg daily. - She was admitted again from 01/27/18-01/28/18 and 01/29/18-01/30/18 with similar symptoms. Workup with CT head which noted age-related volume loss with mild chronic small vessel ischemic disease, CTA neck and MRI brain were reportedly unremarkable at that time. She had an EEG which was reported negative for seizure activity. She was recommended to have a loop recorder placed which she declined and was again recommended to have an outpt event monitor placed in Cardiology followup. - She has an outpt appt with Neurology in [facility] on 03/21 - She has been on a baby aspirin and tries to do that daily but her low platelets have made it somewhat problematic. - MRI Brain (03/06) --> Negative for any evidence of acute infarction. - Telemetry without any evidence of arrhythmias so far. - Neurology consultation is pending. - Patient needs a surveillance system monitor and a prolonged event monitor which is been advised by cardiology that she declined to set up that appointment as an outpatient. - Supportive care - Cont. IVF for now Diarrhea - Pt has had intermittent issues with diarrhea reportedly since starting radiation therapy and electrolyte imbalances related to this - She has been more recently on Imodium once or twice daily which controls the diarrhea - The diarrhea has been checked previously for C. diff per the pt which was negative. - Pt is on IVF - Monitor electrolytes - Imodium PRN Cervical and Uterine CA - Pt follows with Dr. Carvalho and Dr. Collazo - She last received platelet transfusions on 03/05 in attempts to prepare her for her planned female exam under anesthesia with seed implantation for brachytherapy for today. This has been placed on hold until the pt can be medically cleared for the procedure and anesthesia. - Dr. Carvalho following the pt as well. Abnormal UA - Pts UA was abnormal but was not a reported clean catch - Repeat UA as clean catch and await culture results - We will give Cipro 500mg po BID x 5 days and follow cultures The exam, history, and the medical decision-making described in the above note were completed with the assistance of the mid-level provider. I reviewed and agree with the findings presented. I attest that I had a [id number] encounter with the patient on the same day, and personally performed and documented my assessment and findings in the medical record. Discussed case with Deven Almodovar Factor. Pt likely had a tia. she may have pafib but unproven. she would not be an anticoagulation candidate anyway she should take [id number] daily. She needs an EUA procedure on Saturday with Dr Carvalho. There is no absolute contraindication to the procedure... She would be at ongoing risk for tia/cva at at present time no other intervention to lower the risk is possible. If there is benefit to her survival with the procedure and subsequent radiation therapy then I would proceed per oncology recommendation. Discussed ongoing risk of tia/cva with pt. (2) Slurred speech Code(s): R47.81 - Slurred speech Status: Acute (3) Acute UTI Code(s): N39.0 - Urinary tract infection, site not specified Status: Acute (4) Cervical cancer Code(s): C53.9 - Malignant neoplasm of cervix uteri, unspecified Status: Acute
[2018-03-07 15:07] LABS: Bilirubin,Urine Negative (Negative); Clarity,Urine Cloudy (Clear); Color,Urine Straw (Yellw/Straw); Glucose,Urine (UA) Negative (Negative); Leukocyte Esterase,Urine Large (Negative); Nitrite,Urine Negative (Negative); Specific Gravity,Urine 1.005 (1.002-1.035); Squamous Epithelial Cell,Urine <1 /hpf (0-5)
--- NOTE | 2018-03-07 15:18 | MB ---
cc: Maria Luz Govea MD DATE: 03/07/2018 REASON FOR CONSULTATION: TIA. HISTORY OF PRESENT ILLNESS: This is an 82-year-old woman with a history of cervical and apparently uterine cancer, under the care of Dr. Collazo and Dr. Carvalho, has had, over the last 2 months, several episodes of what is described as slurred speech, dysarthria. She was hospitalized at the end of December at [facility] and had complete workup there with a normal ejection fraction of 50-55% without any valve vegetations. Had an MRI that was unremarkable, but per chart, it states that she had 1 positive for stroke, that MRI should be obtained and placed in the chart if possible. Events leading her to the ER here, apparently, she went to the oncology suite for a preplanned hydration, pre-evaluation for cervical seed implant under anesthesia. It was supposed to be done apparently today. The front end specialist noticed that she had possibly slurring of words versus aphasia. At this point, it is really unknown. They encouraged her to come to the ER. She refused, went upstairs; however, still having the same symptoms. There may have been some dizziness. Put her in a wheelchair and they brought her here. Since being in the ER, she has not had any dizziness, weakness or speech issues. She had an MRI of the brain that did not show any acute findings. She has been receiving platelet transfusions to prepare her for her treatment. She does take at home potassium, magnesium and baby aspirin. She denies any chest pain or palpitations. SOCIAL HISTORY: She drinks maybe 1 to 2 times a month. Smoking, denies ever smoking. No illicit drugs. She is a since 2003. Has children locally, but 1 daughter that is staying with her. 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 PHYSICAL EXAMINATION: VITAL SIGNS: Her temperature is 98.9, pulse 80, respiratory rate 17, blood pressure 136/72, saturating at 96% on room air. NECK: Supple. There are no appreciable bruits. HEART: Regular. NEUROLOGIC: She is awake and alert. She is oriented and fluent. Pupils reactive. Visual laureano are full. Face symmetrical. Tongue midline. There is no drift or leg lag. Toes are downgoing. Reflexes are 1+. Cerebellar normal. Gait, I am deferring at this time. DIAGNOSTIC DATA: Labs are reviewed. Her hemoglobin is 8.4, platelets are 55,000 today, a drop from 61,000 yesterday. Her coag panel: PTT 21.6. Chemistries: GFR 64, glucose 87, potassium 3.7, albumin 3. Urine: It was not a clean catch and showed 99 white cells. Clean catch was just obtained. MRI of the brain was performed here in the hospital. It did not show any acute infarct, nothing acute as far as ischemia, chronic changes, white matter changes. 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 I would recommend keeping her on telemetry for the next couple of days. She would benefit from an event monitor versus a loop recorder. The issue is that she has thrombocytopenia. We will continue her baby aspirin if that is okay with oncology. At this point, I do not feel comfortable giving her anticoagulation due to the reason that we do not see anything embolic thus far. In the event she does have atrial fibrillation, at that point in time, certainly, anticoagulation should be considered; however, still may be high risk in this patient. Try to obtain any records from her other hospitalization. Otherwise, if we cannot obtain it, I would go ahead and repeat an MRA of [place] and carotid ultrasound. MD HOWIE Ng/GAGE , 02:54 PM , 03:16 PM
[2018-03-07] MEDS ORDERED: Ciprofloxacin 500 MG Tablet PO SCH (17:15)
--- NOTE | 2018-03-10 08:12 | ECG ---
Date Performed: 03/06/2018 Time Performed: 14:04:19 PTAGE: 82 years EKG: Sinus rhythm NONSPECIFIC T-WAVE ABNORMALITY BORDERLINE ECG NO PREVIOUS TRACING DOCTOR: Shane San Interpretating Date/Time 03/10/2018 08:12:28
--- NOTE | 2018-03-10 12:19 | MB ---
cc: Angela Carvalho MD,Doug Schumacher,Edilson Hilario MD PhD Cheng,Navarro Caruso MD DATE: 03/06/2018 PHYSICIAN REQUESTING CONSULT: Dr. Edilson Schumacher REASON FOR CONSULTATION: The patient known to have cervical cancer. HISTORY OF PRESENT ILLNESS: Nirali Marshall is seen in the emergency room where 15-minute of a 15 minutes [id number] encounter was spent in counseling and coordination of care. Our meeting was limited to a consultative discussion. She was not reexamined. I explained that she had been scheduled for anesthesia and tandem and ovoid placement on the morning of Saturday the , but because on the previous day and on other occasions in recent weeks, she has had some slurred speech, some confusion and was in the process of an ongoing medical neurologic evaluation. As the evaluation had not been completed, I had the opportunity to speak with Dr. Schumacher on the evening of , 03/06/2018. He expressed concern that further information would be helpful and expressed concern regarding uncertainty as to whether or not she should undergo anesthesia the next morning on 03/07/2018, I explained to her that everyone has her best interest in mind. We want to help her, but keep her as safe as possible. We have a difficult set of circumstances, she has an advanced cervical cancer for which she needs to complete her treatment, but she has these new neurologic symptoms that are of uncertain etiology. Furthermore, her treatment has been associated by thrombocytopenia that has not improved and I discussed how she may need to be evaluated by hematology at some point in the near future as well. She has already had a platelet transfusion. Questions were asked and answered. She expressed a good understanding and seemed to understand the pertinent aspects of our discussion. Naturally, she would like to move forward with completion of her treatment as soon as possible and she is encouraged to followup with any additional outpatient recommendation from her other care providers. Whether or not she will need to be admitted to the hospital or can be discharged later today with outpatient evaluation will be up to her medical care team. Subsequent to this encounter on the evening of Saturday, I had the opportunity to speak with Dr. Sylvester Anand who is helping to oversee her care. He had spoken with the neurology solutions architect consultant and whereas there remains an element of uncertainty regarding her symptoms and regarding risks of surgery and anesthesia, it is felt that given the potential benefit of staying on schedule with her cervical cancer treatment, that it would be reasonable to move forward with tandem and ovoid and high-dose brachytherapy on 03/10/2018. She understands that there are risks and things that cannot be predicted. He has explained these as has the neurologist, as have her other care providers. She understands and is in favor of discharge to home with followup for the procedure and brachytherapy on 03/10/2018. MD EUNICE Crane/ROEL , 11:56 AM , 12:17 PM ALEJANDRA
== END 2018-03-07 18:45 | disposition home health service (06) ==
LOC: NEDA 12:27 → NEPE 12:27 → NEPFCDU 12:27 → NEDH 23:06 → NEPFCDU 23:09
PROVIDERS: ADMIT Hospitalist; ATTEND Hospitalist
DX: C53.9 Malignant neoplasm of cervix uteri, unspecified; C55 Malignant neoplasm of uterus, part unspecified; G45.9 Transient cerebral ischemic attack, unspecified; R19.7 Diarrhea, unspecified; Z86.73 Personal history of transient ischemic attack (TIA), and cerebral infarction without residual deficits; N39.0 Urinary tract infection, site not specified; D69.6 Thrombocytopenia, unspecified